=== PATIENT | male | born 1970 | race Two or more races ===

== ENCOUNTER 2025-03-31 23:01 | Emergency (ER) | payer BC ==
[~2025-03-31] VITALS: Ht 177.8 cm; Wt 99.8 kg
[~2025-03-31 23:01] MED LIST: CIPRO PO
[2025-03-31 23:05] VITALS: BP 122/73
[2025-04-01] MEDS ORDERED: PRED20TA PO (00:10)
[2025-04-01 00:59] VITALS: BP 125/75; O2SAT 96
== END 2025-04-01 00:10 | disposition left against medical advice (07) ==
LOC: ER 23:13
DX: T78.2XXA Anaphylactic shock, unspecified, initial encounter (principal); Z79.52 Long term (current) use of systemic steroids; Z88.7 Allergy status to serum and vaccine; Y92.89 Other specified places as the place of occurrence of the external cause
CPT/HCPCS: 99283; J7512; A4606; A4663